=== PATIENT | male | born 1990 | race Caucasian/White ===

== ENCOUNTER 2018-08-01 23:40 | Emergency (ER) | payer SELFPAY ==
[2018-08-02] MEDS ORDERED: NORMAL SALINE 1000 ML 1,000 ML IV ONE (00:03)
[2018-08-02] MEDS ORDERED: LORAZEPAM INJ 2 MG/1 ML VIAL IV ONE (00:03)
[2018-08-02 00:24] LABS: ABSOLUTE EOSINOPHILS # (AUTO) 0.1 10^3/uL (0.0-0.6); ABSOLUTE LYMPHOCYTES (AUTO) 1.8 10^3/uL (0.5-4.7); BASOPHILS % (AUTO) 0.3 % (0-2); EOSINOPHILS % (AUTO) 0.6 % (0-6); HEMATOCRIT 44.3 % (37.9-51.0); HEMOGLOBIN 15.6 g/dL (13.5-17.0); LYMPHOCYTES % (AUTO) 18.6 % (13-45); MEAN CORPUSCULAR HEMOGLOBIN 32.2 pg (27.0-33.4); MEAN CORPUSCULAR HGB CONC 35.1 g/dL (32.0-36.0); MEAN CORPUSCULAR VOLUME 92 fl (80-97); MONOCYTES % (AUTO) 10.1 % (3-13); PLATELET COUNT 316 10^3/uL (150-450); RED BLOOD COUNT 4.83 10^6/uL (4.35-5.55); RED CELL DISTRIBUTION WIDTH 14.7 % (11.5-14.0); SEGMENTED NEUTROPHILS % (AUTO) 70.4 % (42-78); TOTAL CELLS COUNTED % (AUTO) 100 %; WHITE BLOOD COUNT 9.9 10^3/uL (4.0-10.5)
--- NOTE | 2018-08-02 00:26 | ER Document Report ---
ED General - General Chief Complaint: Palpitations Stated Complaint: PALPITATION Time Seen by Provider: 08/01/18 23:56 Notes: Patient is a pleasant 28-year-old male with a history of some stress and anxiety and also history of asthma resents with complaint of pleuritic chest pain, tachycardia, and some difficulty breathing. He says he first noticed symptoms that came on suddenly 3 days ago. He says they have progressed slowly and therefore is come to the ER. Says he does have a history of anxiety and some panic attacks but says this feels a little bit different and that he is been short of breath for 3 days now. No history of PE. No recent pain or swelling in his lower extremities. No fevers or infections. No vomiting. No other complaints at this time. - Related Data Allergies/Adverse Reactions: No Known Allergies Allergy (Verified 08/01/18 23:57) Past Medical History - Social History Smoking Status: Current Every Day Smoker Frequency of alcohol use: Occasional Drug Abuse: None Family History: Reviewed & Not Pertinent Review of Systems - Review of Systems Notes: My Normal Review Basic REVIEW OF SYSTEMS: CONSTITUTIONAL : Denies fever, chills, or sweats. Denies recent illness. EENT: Denies eye, ear, throat, or mouth pain or symptoms. Denies nasal or sinus congestion. CARDIOVASCULAR: Pleuritic chest pain. RESPIRATORY: Feels short of breath GASTROINTESTINAL: Denies abdominal pain. Denies nausea, vomiting, or diarrhea. MUSCULOSKELETAL: Denies neck or back pain or joint pain or swelling. SKIN: Denies rash or skin lesions. NEUROLOGICAL: Denies altered mental status or loss of consciousness. Denies headache. Denies weakness or paralysis or loss of use of either side. Denies problems with gait or speech. Denies sensory or motor loss. PSYCHIATRIC: Some anxiety ALL OTHER SYSTEMS REVIEWED AND NEGATIVE. Physical Exam - Vital signs Vitals: Resp BP Pulse Ox 15 137/91 H 95 08/01/18 23:50 08/01/18 23:50 08/01/18 23:50 - Notes Notes: General Appearance: Well nourished, alert, cooperative, no acute distress, no obvious discomfort. Vitals: reviewed, See vital signs table. Head: no swelling or tenderness to the head Eyes: PERRL, EOMI, Conjuctiva clear Mouth: No decreasd moisture Lungs: No wheezing, No rales, No rhonci, No accessory muscle use, good air exchange bilaterally. Heart: Tachycardic rate, Regular rythm, No murmur, no rub Abdomen: Normal BS, soft, No rigidity, No abdominal tenderness, No guarding, no rebound, no abdominal masses, no organomegaly Extremities: strength 5/5 in all extremities, good pulses in all extremities, no swelling or tenderness in the extremities, no edema. Skin: warm, dry, appropriate color, no rash Neuro: speech clear, oriented x 3, normal affect, responds appropriately to q uestions. Course - Re-evaluation Re-evalutation: 08/02/18 06:20 CT was obtained because of the patient's persistent tachycardia and pain with deep breathing that was sudden onset [address] is negative. He has no signs of infection. EKG is normal appearing. Troponin is negative. Patient describes symptoms that further calls concerned that this could be stress or anxiety related that he says he gets numbness and tingling into both hands when he feels his heart is racing or when he starts breathing fast. He does have a long history of anxiety. We will give him some Vistaril to try at home. Encouraged him return to ER if he has worsening difficulty breathing, fevers, severe chest pain, or if he feels unwell. Patient clinically looks well and is in no distress at this time and therefore I feel safe to be discharged home. Patient agrees with plan will be discharged home. Dictation of this chart was performed using voice recognition software; therefore, there may be some unintended grammatical errors. - Vital Signs Vital signs: Temp Pulse Resp BP Pulse Ox 98.8 F 17 124/75 97 08/02/18 02:28 08/02/18 02:01 08/02/18 02:01 08/02/18 02:01 - Laboratory Result Diagrams: 08/01/18 23:45 08/01/18 23:45 Laboratory results interpreted by me: 08/01/18 08/01/18 23:45 23:45 RDW 14.7 H Chloride 111 H Carbon Dioxide 21 L Glucose 121 H - EKG Interpretation by Me Additional EKG results interpreted by me: 08/02/18 00:23 EKG is reviewed and interpreted by me. EKG shows sinus tachycardia with a rate of [address] segment elevation or depression. No ischemic T wave inversions. OH interval, QRS duration, QT intervals are within normal range. No old EKG available for comparison. Discharge - Discharge Clinical Impression: Tachycardia Chest pain Qualifiers: Chest pain type: unspecified Qualified Code(s): R07.9 - Chest pain, unspecified Condition: Good Disposition: HOME, SELF-CARE Additional Instructions: Workup looking at causes of your chest pain did not show any dangerous etiology. There is no evidence of blood clot in your lungs. There is no evidence of a heart attack. No evidence of infection. I suspect your pain could be related to stress. We will send you home with a few tablets of Vistaril. This medication can take different anxious or nervous. He will may feel a bit sleepy so please do not drive after taking it. Please return to ER immediately if you have worsening of her symptoms or feel unwell. Please follow-up with a physician this week for reevaluation. Forms: Return to Work
--- NOTE | 2018-08-02 01:08 | RADIOLOGY REPORT (SQ) ---
CLINICAL HISTORY: pleuritic chest pain, dyspnea COMPARISON: None. TECHNIQUE: CT CHEST ANGIOGRAPHY WITHOUT THEN WITH IV CONTRAST on 08/02/2018 12:03 AM CDT. MIPS reconstructions were generated. This exam was performed according to our departmental dose-optimization program, which includes automated exposure control, adjustment of the mA and/or kV according to patient size and/or use of iterative reconstruction technique. MIP images were generated. FINDINGS: Thoracic aorta is normal in course and caliber without aneurysm or dissection. Pulmonary arteries are adequately opacified without acute or chronic filling defects. The heart is normal in size. There is no pericardial effusion. Intrathoracic lymph nodes are not enlarged. There is no pleural effusion, pleural thickening or pneumothorax. Central airways are patent. Lungs are clear with no consolidation, mass or interstitial lung disease. There are no acute abnormalities within the limited images of the upper abdomen. There are no acute osseous findings. No suspicious bony lesions. IMPRESSION: No aortic dissection or aneurysm. No pulmonary embolus. No pneumonia.
[2018-08-02 01:43] LABS: ANION GAP 12 (5-19); BLOOD UREA NITROGEN 12 mg/dL (7-20); CALCIUM 9.9 mg/dL (8.4-10.2); CARBON DIOXIDE 21 mmol/L (22-30); CHLORIDE 111 mmol/L (98-107); GLUCOSE 121 mg/dL (75-110); POTASSIUM 4.3 mmol/L (3.6-5.0); SODIUM 144.4 mmol/L (137-145)
[2018-08-02] MEDS ORDERED: HYDROXYZINE PAMOATE 25 MG CAPSULE (4 CAP/ER DISP) PO PRN (02:17)
[2018-08-02 02:22] VITALS: BP 124/75
--- NOTE | 2018-08-02 07:41 | EKG REPORT ---
SEVERITY:- OTHERWISE NORMAL ECG - SINUS TACHYCARDIA : Confirmed by: Surya Collins MD 02-Aug-2018 07:41:00
== END 2018-08-02 02:28 | disposition home or self-care (01) ==
LOC: ER 23:40
DX: R00.0 Tachycardia, unspecified (principal); R07.81 Pleurodynia; R07.1 Chest pain on breathing; R20.0 Anesthesia of skin; R20.2 Paresthesia of skin; J45.909 Unspecified asthma, uncomplicated; R06.02 Shortness of breath; F17.200 Nicotine dependence, unspecified, uncomplicated
CPT/HCPCS: 93005; 99285; 96361; 96374; 36415; 85025; 80048; 84484; 71275; 93010; J3490; J2060; J7030

== ENCOUNTER 2019-09-09 12:57 | Emergency (ER) | payer OTHER ==
--- NOTE | 2019-09-09 13:25 | ER Document Report ---
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 Woke up today with a sore throat. States he has been taking Mucinex and ibuprofen with some relief. Patient denies any ill contacts, no recent travel. 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 has not had any contact with the positive COVID-19 patients. Patient also states that his tested positive for the flu today. Denies any cough, shortness of breath, no difficulty breathing. Tolerating p.o. food and fluids without difficulty. TRAVEL OUTSIDE OF THE [place] IN LAST 30 DAYS: No - Related Data Allergies/Adverse Reactions: No Known Allergies Allergy (Verified 08/01/18 23:57) Past Medical History - General Information source: Patient, Relative - Social History Smoking Status: Never Smoker Frequency of alcohol use: Occasional Drug Abuse: None Family History: Reviewed & Not Pertinent Patient has homicidal ideation: No Pulmonary Medical History: Reports: Hx Asthma Neurological Medical History: Reports: Other - TBI while in the Renal/ Medical History: Denies: Hx Peritoneal Dialysis Past Surgical History: Reports: Hx Abdominal Surgery - infant hernia repair, Hx Appendectomy, Hx Orthopedic Surgery - r wrist Review of Systems - Review of Systems Constitutional: Fever EENT: Throat pain Cardiovascular: No symptoms reported Respiratory: No symptoms reported Musculoskeletal: No symptoms reported Skin: No symptoms reported Neurological/Psychological: No symptoms reported -: Yes All other systems reviewed and negative Physical Exam - Vital signs Vitals: Temp 98.2 F 09/09/19 13:02 - General General appearance: Appears well, Alert In distress: Mild - HEENT Head: Normocephalic, Atraumatic Eyes: Normal Pupils: PERRL Pharynx: Erythema. No: Exudate, Peritonsillar abscess Neck: No: Kernig's, Lymphadenopathy, Meningismus - Respiratory Respiratory status: No respiratory distress Chest status: Nontender Breath sounds: Normal Chest palpation: Normal - Cardiovascular Rhythm: Tachycardia Heart sounds: Normal auscultation Murmur: No - Extremities General upper extremity: Normal inspection, Nontender, Normal color, Normal ROM, Normal temperature General lower extremity: Normal inspection, Nontender, Normal color, Normal ROM, Normal temperature, Normal weight bearing. No: Jennifer's sign - Neurological Neuro grossly intact: Yes Cognition: Normal Orientation: AAOx4 Leanne Coma Scale Eye Opening: Spontaneous Alpine Coma Scale Verbal: Oriented Alpine Coma Scale Motor: Obeys Commands Leanne Coma Scale Total: 15 Speech: Normal Motor strength normal: LUE, RUE, LLE, RLE Sensory: Normal - Skin Skin Temperature: Warm Skin Moisture: Dry Skin Color: Normal Skin irregularity: negative: Rash Course - Re-evaluation Re-evalutation: 09/09/19 16:45 Patient is resting comfortably vital signs are stable. All test results were reviewed with patient. Counseled will be notified of his COVID testing results when they are available. Recommend self quarantining from for 14 days as she is positive for influenza and works at the long[employer] where there have been some positive COVID 19 patients. Tylenol and or Motrin as needed for fever and body aches. Rapid strep was negative, will be notified if throat culture is p ositive. Follow-up primary care physician if not improving in 2 to 3 days. He was given strict return to the emergency room guidelines. Return for any new or worsening symptoms. All questions were answered. Patient verbalizes understanding and agrees with plan of care. 09/09/19 16:50 - Vital Signs Vital signs: Temp Pulse Resp BP Pulse Ox 98.8 F 73 16 125/88 H 100 09/09/19 17:01 09/09/19 17:01 09/09/19 17:01 09/09/19 17:01 09/09/19 17:01 - Laboratory Result Diagrams: 09/09/19 13:00 09/09/19 13:00 Laboratory results interpreted by me: 09/09/19 09/09/19 09/09/19 13:00 13:00 14:05 RDW 14.1 H Lymph % (Auto) 12.6 L Sodium 135.2 L Glucose 147 H Urine Blood SMALL H Ur Leukocyte Esterase SMALL H - Diagnostic Test Radiology reviewed: Reports reviewed Discharge - Discharge Clinical Impression: Sore throat Fever Qualifiers: Fever type: unspecified Qualified Code(s): R50.9 - Fever, unspecified Condition: Stable Disposition: HOME, SELF-CARE Instructions: Fever ([facility]), Sore Throat ([facility]), Viral Syndrome ([facility]) Additional Instructions: Tylenol and or Motrin as needed for fevers, self quarantine from for 14 days. Supportive therapy. Follow-up with primary care physician if not improving in 2 to 3 days. Return for any new or worsening symptoms. Referrals: [facility] [Primary Care Provider] - Follow up as needed
--- NOTE | 2019-09-09 14:18 | RADIOLOGY REPORT (SQ) ---
EXAM DESCRIPTION: CHEST SINGLE VIEW IMAGES COMPLETED DATE/TIME: 09/09/2019 2:09 pm REASON FOR STUDY: fever COMPARISON: None. EXAM PARAMETERS: NUMBER OF VIEWS: One view. TECHNIQUE: Single frontal radiographic view of the chest acquired. RADIATION DOSE: NA LIMITATIONS: None. FINDINGS: LUNGS AND PLEURA: No opacities, masses or pneumothorax. No pleural effusion. MEDIASTINUM AND HILAR STRUCTURES: No masses. Contour normal. HEART AND VASCULAR STRUCTURES: Heart normal in size. Normal vasculature. BONES: No acute findings. HARDWARE: None in the chest. OTHER: No other significant finding. IMPRESSION: NO ACUTE RADIOGRAPHIC FINDING IN THE CHEST. TECHNICAL DOCUMENTATION: JOB ID: [id number] [employer]- All Rights Reserved Reading location - IP/workstation name: [email or web address]
[2019-09-09 14:30] LABS: ABSOLUTE EOSINOPHILS # (AUTO) 0.1 10^3/uL (0.0-0.6); ABSOLUTE LYMPHOCYTES (AUTO) 1.1 10^3/uL (0.5-4.7); ABSOLUTE NEUT (AUTO) 6.7 10^3/uL (1.7-8.2); BASOPHILS % (AUTO) 0.4 % (0-2); EOSINOPHILS % (AUTO) 1.5 % (0-6); HEMOGLOBIN 15.3 g/dL (13.5-17.0); LYMPHOCYTES % (AUTO) 12.6 % (13-45); MEAN CORPUSCULAR HEMOGLOBIN 30.8 pg (27.0-33.4); MEAN CORPUSCULAR HGB CONC 34.9 g/dL (32.0-36.0); MEAN CORPUSCULAR VOLUME 88 fl (80-97); MONOCYTES % (AUTO) 11.1 % (3-13); PLATELET COUNT 207 10^3/uL (150-450); RED BLOOD COUNT 4.98 10^6/uL (4.35-5.55); RED CELL DISTRIBUTION WIDTH 14.1 % (11.5-14.0); SEGMENTED NEUTROPHILS % (AUTO) 74.4 % (42-78); TOTAL CELLS COUNTED % (AUTO) 100 %
[2019-09-09 14:41] LABS: ALBUMIN 4.2 g/dL (3.5-5.0); ALKALINE PHOSPHATASE 80 U/L (38-126); ANION GAP 7 (5-19); ASPARTATE AMINO TRANSFERASE 30 U/L (17-59); BILIRUBIN,TOTAL 0.6 mg/dL (0.2-1.3); BLOOD UREA NITROGEN 11 mg/dL (7-20); CALCIUM 9.1 mg/dL (8.4-10.2); CARBON DIOXIDE 26 mmol/L (22-30); CHLORIDE 102 mmol/L (98-107); GLUCOSE 147 mg/dL (75-110); POTASSIUM 3.7 mmol/L (3.6-5.0); TOTAL PROTEIN 7.1 g/dL (6.3-8.2)
[2019-09-09 14:43] LABS: APPEARANCE,URINE CLEAR; BILIRUBIN,URINE NEGATIVE (NEGATIVE); COLOR,URINE YELLOW; GLUCOSE, URINE NEGATIVE (NEGATIVE); KETONES,URINE NEGATIVE (NEGATIVE); LEUKOCYTE ESTERASE,URINE SMALL (NEGATIVE); NITRITE,URINE NEGATIVE (NEGATIVE); PROTEIN,URINE NEGATIVE (NEGATIVE); URINE SPECIFIC GRAVITY 1.011; UROBILINOGEN,URINE NEGATIVE mg/dL (<2.0)
[2019-09-09 14:53] LABS: A TYPE INFLUENZA AG NEGATIVE (NEGATIVE)
[2019-09-09 14:54] LABS: B INFLUENZA AG NEGATIVE (NEGATIVE)
[2019-09-09] MEDS ORDERED: RINGERS SOLUTION,LACTATED 1,000 ML IV ONE (15:37)
[2019-09-09 16:51] VITALS: BP 125/88
== END 2019-09-09 17:03 | disposition home or self-care (01) ==
LOC: ER 12:57
DX: J02.9 Acute pharyngitis, unspecified (principal); R50.9 Fever, unspecified; Z87.820 Personal history of traumatic brain injury; Z20.828 Contact with and (suspected) exposure to other viral communicable diseases
CPT/HCPCS: 99283; 96360; 36415; 87070; 87880; 85025; 87635; 80053; 81001; 87804; 71045; J7120